=== PATIENT | female | born 1975 | race Caucasian/White ===

== ENCOUNTER 2017-04-30 16:11 | Inpatient (IN) | payer BC, OTHER ==
[~2017-04-30] VITALS: Ht 160 cm; Wt 180.9 kg
--- NOTE | ~2017-04-30 | DS ---
Unit #: [id number] #: [id number] Patient: JOHNATHON CANNON [id number] [address] [place], [place] [address] [id number] MR#: [id number] NAME: JOHNATHON CANNON ROOM: 461 Age: 42 Sex: F Admission Date: 04/30/2017 : 1975 Discharge Date: 05/04/2017 Attending Physician: Emmanuel Arias M.D. Primary Care Physician: No Primary Care Physician DISCHARGE SUMMARY REVISED REPORT HISTORY AND HOSPITAL COURSE Ms. Cannon is a 42-year-old female who is morbidly obese and had several previous intraabdominal operations. She presented with nausea and vomiting and, on CT scan, had an incarcerated incisional ventral hernia with a loop of small bowel. On examination she had erythema and tenderness, and she was taken urgently to the operating room for the incarcerated small bowel. At the time of surgery she was found to have a loop of bowel that was ischemic, but with reduction, the bowel resumed its normal blood flow and resection was not necessary. Other adhesions were taken down, and her abdominal wall was assessed, and there were several other small hernias, and all of the hernias were repaired primarily. She was also noted to have iron deficiency anemia and a urinary tract infection. She had a very unremarkable postoperative course. She regained bowel function by the second postoperative day and was able to be advanced on her diet without difficulty. She ambulated independently. We did have her wear an abdominal binder, but she did not have any difficulty with ambulation. Her wound is healing without complication. I did place a Drew-Malone drain to prevent seroma formation, and the patient will be taught how to use the drain and will go home with that. Today, the nurses have taught her how to use it. We will remove it in the office next week. She is to call and make an appointment. Her serum iron was low, so she will be put on some iron supplementation. She did grow out E-coli in her urine, sensitive to Bactrim, so she will be sent home on Bactrim. The patient has not been diagnosed with sleep apnea, and she did not have any problems postop. Once she is recovered from surgery, we will refer her to a sleep medicine specialist for evaluation. The patient understood these instructions and discharged home in stable condition. Dictated by... Naya Rogers/mario alberto TD: 05/07/2017 07:50 JOB #: [id number] Unit #: [id number] #: [id number] Patient: JOHNATHON CANNON DISCHARGE SUMMARY Page 1 of 1 X Valentin Salomon MD X DISCHARGE SUMMARY
--- NOTE | ~2017-04-30 | CT4 ---
[facility] A Service of [facility] & [facility] RADIOLOGY TEXT RESULTS PATIENT: JOHNATHON MADDEN LOCATION: [facility] 461-01 : [birth year] UNIT #: [id number] AGE: [address]: Emmanuel Arias MD SEX: F ORDER DR: [id number] [facility] [address] [place], [place] [address] [id number] I MR#: [id number] Acc #: [id number] NAME: JOHNATHON MADDEN : 1975 SEX: F STUDY DATE/TIME: 04/30/2017 22:03 UNIT: [facility] ROOM: [facility] STUDY DESCRIPTION: CT Abd and Pelv Wo Cont Attending Physician: Emmanuel Arias M.D. Ordering Physician: Getachew Urias M.D. Primary Care Physician: No Primary Care Physician MEDICAL IMAGING REPORT This report is preliminary unless electronic signature is present EXAM CT abdomen and pelvis without contrast. HISTORY Abdomen pain, nausea and vomiting for 4 days. Hernia reduction in the emergency room today. TECHNIQUE CT abdomen and pelvis was performed without contrast. This CT exam was performed with one or more of the following radiation dose reduction techniques: automatic exposure control, adjustment of mA and/or kV according to patient size, and iterative reconstruction. FINDINGS CT abdomen: There is a small Wagoner hernia in the anterior midline upper abdomen containing the anterior portion of a short segment of mid transverse colon. No associated bowel obstruction. Postop changes of prior gastric stapling. Cholecystectomy. The liver, spleen, kidneys, and adrenal glands are unremarkable. Mild pancreatic parenchymal atrophy. Moderate dilatation of small bowel in the abdomen and pelvis, similar in degree as compared to CT earlier today. There is a moderate-sized umbilical hernia containing loops of small bowel, both decompressed and mildly dilated, measuring approximately 8 x 11 cm x 10 cm in AP, transverse craniocaudal dimensions. The hernia was only partly included on the CT earlier today due to technique. The degree of small bowel dilatation is similar to the prior study. The colon is decompressed. No free fluid. Normal caliber abdominal aorta. CT pelvis: Moderate dilatation of multiple fluid-filled small bowel loops in the pelvis are similar to the prior study. Excreted contrast in the urinary bladder. The uterus and adnexa. [facility] A Service of [facility] RADIOLOGY TEXT RESULTS PATIENT: JOHNATHON MADDEN LOCATION: [facility] 461-01 : [birth year] UNIT #: [id number] AGE: [address]: Emmanuel Arias MD SEX: F ORDER DR: IMPRESSION 1. Persistent umbilical hernia which was only partly included on the CT earlier today. The hernia contains small bowel loops both decompressed and mildly dilated and the hernia measures 8 cm by 11 cm x 10 cm. There is also stable dilatation of small bowel throughout the majority the abdomen and pelvis. Findings are concerning for mechanical small bowel obstruction. The umbilical hernia may be the site of small bowel obstruction, although a definite transition point is not identified within the hernia. Alternatively, there may be a small bowel adhesion, within the abdomen or pelvis but a definite transition point is not identified. 2. Postop changes of gastric stapling. 3. Stable Wagoner hernia incidentally noted in the anterior margin of the mid transverse colon in the midline upper abdomen. 4. No free fluid or loculated fluid. Dictated by... Edgardo Kirby M.D. THIS IS AN ELECTRONICALLY VERIFIED REPORT Edgardo Kirby M.D. at 05/01/2017 2:39 PM AUTUMN/mónica TD: 05/01/2017 11:45 JOB #: [id number] MEDICAL IMAGING REPORT Page 1 of 1 COPY
--- NOTE | ~2017-04-30 | OR ---
Unit #: [id number] #: [id number] Patient: JOHNATHON CANNON [id number] [address] [address] [id number] I MR#: [id number] NAME: JOHNATHON CANNON ROOM: 461 Date of Procedure: 05/01/2017 Admission Date: 04/30/2017 Surgeon: Valentin Salomon M.D. : 1975 Attending Physician: Emmanuel Arias M.D. Primary Care Physician: Primary Care Physician No OPERATIVE REPORT PREOPERATIVE DIAGNOSIS Small-bowel obstruction secondary to incarcerated incisional ventral hernia. POSTOPERATIVE DIAGNOSIS Small-bowel obstruction secondary to incarcerated incisional ventral hernia. PROCEDURES PERFORMED 1. Exploratory laparotomy. 2. Takedown of incisional ventral hernia with lysis of adhesions. 3. Primary repair of incisional ventral hernia. INSPECTOR CIRCUITRY NEGATIVE Crady. ANESTHESIA General endotracheal anesthesia. ESTIMATED BLOOD LOSS 50 mL. INDICATIONS FOR PROCEDURE Ms. Cannon is a morbidly obese 42-year-old female, who has had multiple previous abdominal surgeries. She presented to the emergency room with nausea and vomiting and on CT scan, had a small bowel obstruction secondary to an incarcerated incisional ventral hernia. On examination of the CT, there were several areas of fascial defect, but the central largest defect near the umbilicus had a loop of small bowel that was obviously obstructed. DESCRIPTION OF PROCEDURE The patient was transported from her hospital room to the operating room, and after induction of general endotracheal anesthesia, Norman catheter was placed and she was prepped and draped in usual sterile fashion. A vertical incision made over the palpable mass. I dissected down through the soft tissue and the hernia sac from the surrounding soft tissue. The hernia sac was grasped and elevated between clamps and opened sharply and as we entered the hernia sac, we mobilized, de-torsed, and lysed adhesions to mobilize the small bowel loop that was incarcerated in the hernia sac. Once the small bowel loop was freed up and adhesions were lysed, it was freely mobile and the mild ischemic changes resolved and the Unit #: [id number] #: [id number] Patient: JOHNATHON CANNON bowel had normal blood flow and showed no evidence of ischemia. The bowel was reduced back in the peritoneal cavity. Further adhesions were taken down in the anterior abdominal wall and as we were able to palpate other fascial defects, the fascial opening was opened to include all fascial defects. At the other sites, there was some incarcerated omentum at several the sites, but no other bowel loops. Once the entire anterior abdominal wall was freed up and all fascial defects were identified and included in the opening, a visceral retractor was placed and the fascia was closed with closely placed #1 Vicryl interrupted sutures. Once the fascia was closed, sponge, instrument, and needle counts were correct. I irrigated the soft tissue with saline and Betadine. Through a separate stab incision, a Drew-Malone drain was placed just over the fascia to prevent seroma accumulation. The soft tissue was closed in layers with #1 Vicryl suture and then the skin was reapproximated with sterile skin leon. Dry sterile dressing was placed. During the case, 30 mL of 0.5% Marcaine with epinephrine was infiltrated in the fascia and soft tissue. The patient tolerated the procedure well and she was hemodynamically stable throughout. She was transported to the Recovery in stable condition. She will be readmitted to the hospital postoperatively for postop observation. Dictated by... Naya Rogers/daentte TD: 05/01/2017 11:07 JOB #: [id number] OPERATIVE REPORT Page 1 of 1 X Valentin Salomon MD PROCEDURE OPERATIVE NOTE
--- NOTE | ~2017-04-30 | BMI ---
[facility] Nutrition Therapy DATE: 05/01/17 Patient: JOHNATHON MADDEN Physician: SEBAS Address: [address] Room/Bed: [address] [place] [address], Zip: [place] [address] Admit Date: 04/30/17 Date of : [birth year] Height: 5 3 Weight: 398 180.9 HIGH BMI NOTE: DX: 42 Y.O. FEMALE ADMITTED FOR SBO ANTHROPOMETRICS: 5'3", WT: 395# (180 KG), BMI: 70 DIET: NPO RECOMMENDATIONS: 1. ONCE MEDICALLY FEASIBLE, ADVANCE DIET INDICATED TO HEALTHY HEART + CONSISTENT CARBOHYDRATE DIET + 2000 KCAL RESTRICTION TO PROMOTE GRADUAL WEIGHT LOSS TOWARDS HEALTHY BMI (19.0-25.0) OR +/-10%IBW 2. ADD LOW FIBER TO CURRENT DIET ORDER IF SBO CONFIRMED RD WILL F/U PER PROTOCOL Respectfully, JORGE LUIS JERRY MS, RD, LD Food and Nutritional Services [facility] cc: client file
--- NOTE | ~2017-04-30 | EKG ---
PATIENT: JOHNATHON MADDEN UNIT #: [id number] Ventricular Rate: 76 BPM Atrial Rate: 76 BPM P-R Interval: 142 ms QRS Duration: 80 ms Q-T Interval: 386 ms QTC Calculation(Bezet): 434 ms P Dewar: 21 degrees Calculated R Dewar: 12 degrees Calculated T Dewar: 4 degrees Diagnosis Line: Poor data quality, interpretation may be Diagnosis Line: adversely affected Diagnosis Line: Normal sinus rhythm Diagnosis Line: Normal ECG Diagnosis Line: When compared with ECG of 30-JUL-2016 02:42, Diagnosis Line: No significant change was found Diagnosis Line: Confirmed by MONSE BEDOYA MD ([id number]) on Diagnosis Line: 05/01/2017 2:01:04 PM INTERPRETING MD: ELKE MCDOWELL
--- NOTE | ~2017-04-30 | CT2 ---
[facility] A Service of [facility] & [facility] RADIOLOGY TEXT RESULTS PATIENT: JOHNATHON MADDEN LOCATION: [facility] 461-01 : [birth year] UNIT #: [id number] AGE: [address]: Emmanuel Arias MD SEX: F ORDER DR: [id number] [facility] [address]. [place], [place] [address] [id number] I MR#: [id number] Acc #: [id number] NAME: JOHNATHON MADDEN : 1975 SEX: F STUDY DATE/TIME: 04/30/2017 19:53 UNIT: [facility] ROOM: [facility] STUDY DESCRIPTION: CT Abd and Pelv W Cont Attending Physician: Emmanuel Arias M.D. Ordering Physician: Getachew Urias M.D. Primary Care Physician: No Primary Care Physician MEDICAL IMAGING REPORT This report is preliminary unless electronic signature is present EXAM CT abdomen and pelvis with contrast, 04/30/2017. HISTORY 42-year-old female with abdominal pain and hematemesis for 4 days. COMPARISON None. TECHNIQUE Helical scan performed through the abdomen and pelvis following administration of IV contrast. Coronal and sagittal reformatted images. This CT exam was performed with one or more of the following radiation dose reduction techniques: automatic exposure control, adjustment of mA and/or kV according to patient size, and iterative reconstruction. FINDINGS Examination is slightly limited by patient body habitus. There is partial exclusion of the ventral most portion of the abdominal wall. Visualized lung bases are unremarkable. Postsurgical changes from gastric bypass and cholecystectomy. The liver, spleen, pancreas, both adrenal glands, and both kidneys are within normal limits. Abdominal aorta normal in course and caliber without dissection. There is a moderate ventral abdominal wall hernia containing fat and multiple loops of bowel. There are both collapsed and dilated loops of bowel noted within the ventral abdominal wall hernia and there are multiple dilated fluid-filled loops of bowel noted within the abdomen. Findings most consistent with high-grade small bowel obstruction. No evidence of perforation. No free fluid. The colon is unremarkable. There is a smaller ventral abdominal wall hernia noted slightly more [facility] A Service of [facility] & [facility] RADIOLOGY TEXT RESULTS PATIENT: JOHNATHON MADDEN LOCATION: [facility] 461-01 : [birth year] UNIT #: [id number] AGE: [address]: Emmanuel Arias MD SEX: F ORDER DR: superiorly to the previously described hernia near the umbilicus. This only partially contains a loop of transverse colon. No evidence of obstruction. The urinary bladder, uterus, and adnexa are unremarkable. No free pelvic fluid. No acute bony abnormality. IMPRESSION 1. Moderate ventral abdominal wall hernia near the umbilicus containing fat and both collapse and dilated fluid-filled loops of bowel. There are multiple dilated and fluid-filled loops of bowel noted within the abdomen and findings are most consistent with high-grade small bowel obstruction in or near the ventral abdominal wall hernia. 2. Smaller ventral abdominal wall hernia slightly more cephalad to the previously described partially containing a loop of transverse colon. No evidence of obstruction. 3. Postsurgical changes from gastric bypass and cholecystectomy. Dictated by... Deric French M.D. THIS IS AN ELECTRONICALLY VERIFIED REPORT Deric French M.D. at 05/01/2017 5:11 PM Cesar TD: 05/01/2017 10:44 JOB #: [id number] MEDICAL IMAGING REPORT Page 1 of 1 COPY
[~2017-04-30 16:11] MED LIST: ATENOLOL PO; AUGMENTIN PO; NORCO1 TAB 10/3 PO
[2017-04-30 17:32] LABS: BASOPHIL% 0.2 % (0-2.5); HEMATOCRIT 37.9 % (35.0-45.0); HEMOGLOBIN 11.7 gm/dL (12.0-16.0); LYMPHOCYTE# 1.6 X10e3 (1.0-3.5); LYMPHOCYTE% 8.2 % (17.0-45.0); MEAN CORPUSCULAR HEMOGLOBIN 20.3 PG (28-34); MEAN CORPUSCULAR HGB CONC 30.7 g/dL (30-36); MEAN PLATELET VOLUME 7.8 FL (6.5-11.5); MONOCYTE# 1.4 X10e3 (0-1.0); NEUTROPHIL# 16.8 X10e3 (1.5-7.1); NEUTROPHIL% 84.6 % (40-75); PLATELET COUNT 471 X10e3 (140-420); RED BLOOD COUNT 5.74 X10e (3.90-5.30); RED CELL DISTRIBUTION WIDTH 17.8 % (11.0-15.5); WHITE BLOOD COUNT 19.8 X10e3 (4.0-10.5)
[2017-04-30 17:34] LABS: DIFF IND YES
[2017-04-30 17:42] LABS: INR 1.7
[2017-04-30 17:44] LABS: PROTHROMBIN TIME (PATIENT) 18.7 SECONDS (10.0-11.7)
[2017-04-30 17:47] LABS: PLATELET ESTIMATE INCREASED (NORMAL)
[2017-04-30 17:48] LABS: HYPOCHROMIA MOD; OVALOCYTES PRESENT
[2017-04-30 17:56] LABS: ALBUMIN SERUM 3.9 g/dL (3.5-5.0); BILIRUBIN, DIRECT 0.2 mg/dL (0.0-0.2); BILIRUBIN,INDIRECT 0.3 mg/dL (0.0-0.9); BILIRUBIN,TOTAL 0.5 mg/dL (0.2-2.0); BUN/CREATININE RATIO 17.5; CALCIUM SERUM 8.9 mg/dL (8.4-10.2); CREATININE SERUM 0.8 mg/dL (0.6-1.4); GLOM FILT RATE Estimated 89.7 mL/min (>60); POTASSIUM 3.8 mmol/L (3.5-5.1); PROTEIN TOTAL SERUM 7.8 g/dL (6.0-8.3)
[2017-04-30 18:06] LABS: POC - CKMB 3.6 ng/mL (0.0-7.9); POC - TROPONIN <0.05 ng/mL (<=0.05)
[2017-04-30 19:30] LABS: URINE SOURCE CLEAN CATCH
[2017-04-30 19:35] LABS: URINE APPEARANCE CLOUDY; URINE BLOOD TRACE (NEG); URINE COLOR DK YELLOW; URINE GLUCOSE NEG (NEG); URINE KETONE 1+ (NEG); URINE LEUKOCYTE ESTERASE TRACE (NEG); URINE NITRATE NEG (NEG); URINE PH 5.5 (5-8); URINE PROTEIN 2+ (NEG); URINE SPECIFIC GRAVITY 1.037 (1.003-1.035)
[2017-04-30 19:38] LABS: CULTURE INDICATED? YES; URINE BACTERIA AUWI 2+ (NEGATIVE); URINE SQUAMOUS EPITHELIAL CELL FEW /[HPF]
[2017-05-01 00:46] LABS: BASOPHIL# 0.1 X10e3 (0-0.3); BASOPHIL% 0.5 % (0-2.5); EOSINOPHIL% 0.2 % (0.0-7.0); HEMATOCRIT 35.3 % (35.0-45.0); HEMOGLOBIN 10.9 gm/dL (12.0-16.0); LYMPHOCYTE# 2.5 X10e3 (1.0-3.5); LYMPHOCYTE% 17.2 % (17.0-45.0); MEAN CELL VOLUME 66.5 FL (83-96); MEAN CORPUSCULAR HEMOGLOBIN 20.6 PG (28-34); MEAN CORPUSCULAR HGB CONC 30.9 g/dL (30-36); MEAN PLATELET VOLUME 7.7 FL (6.5-11.5); MONOCYTE# 1.3 X10e3 (0-1.0); MONOCYTE% 8.9 % (3.0-12.0); NEUTROPHIL# 10.9 X10e3 (1.5-7.1); NEUTROPHIL% 73.2 % (40-75); PLATELET COUNT 449 X10e3 (140-420); RED BLOOD COUNT 5.32 X10e (3.90-5.30); RED CELL DISTRIBUTION WIDTH 17.6 % (11.0-15.5); WHITE BLOOD COUNT 14.8 X10e3 (4.0-10.5)
[2017-05-01 00:47] LABS: DIFF IND NO
[2017-05-01 01:07] LABS: BUN/CREATININE RATIO 17.5; CREATININE SERUM 0.8 mg/dL (0.6-1.4); GLOM FILT RATE Estimated 89.7 mL/min (>60); POTASSIUM 3.4 mmol/L (3.5-5.1)
[2017-05-02 03:36] LABS: HEMATOCRIT 34.5 % (35.0-45.0); HEMOGLOBIN 10.5 gm/dL (12.0-16.0); MEAN CELL VOLUME 67.3 FL (83-96); MEAN CORPUSCULAR HEMOGLOBIN 20.5 PG (28-34); MEAN CORPUSCULAR HGB CONC 30.5 g/dL (30-36); MEAN PLATELET VOLUME 7.8 FL (6.5-11.5); RED BLOOD COUNT 5.13 X10e (3.90-5.30); WHITE BLOOD COUNT 14.5 X10e3 (4.0-10.5)
[2017-05-02 03:59] LABS: CALCIUM SERUM 8.3 mg/dL (8.4-10.2); CREATININE SERUM 0.8 mg/dL (0.6-1.4); GLOM FILT RATE Estimated 89.7 mL/min (>60); MAGNESIUM 1.9 mg/dL (1.6-3.0); PHOSPHOROUS 3.1 mg/dL (2.5-4.6); POTASSIUM 3.5 mmol/L (3.5-5.1)
[2017-05-03 04:20] LABS: HEMATOCRIT 32.1 % (35.0-45.0); HEMOGLOBIN 9.9 gm/dL (12.0-16.0); MEAN CELL VOLUME 67.7 FL (83-96); MEAN CORPUSCULAR HEMOGLOBIN 20.9 PG (28-34); MEAN CORPUSCULAR HGB CONC 30.9 g/dL (30-36); MEAN PLATELET VOLUME 8.4 FL (6.5-11.5); RED BLOOD COUNT 4.74 X10e (3.90-5.30); RED CELL DISTRIBUTION WIDTH 18.2 % (11.0-15.5); WHITE BLOOD COUNT 12.7 X10e3 (4.0-10.5)
[2017-05-03 04:46] LABS: BUN/CREATININE RATIO 24.28; CALCIUM SERUM 8.2 mg/dL (8.4-10.2); CREATININE SERUM 0.7 mg/dL (0.6-1.4); GLOM FILT RATE Estimated 105.4 mL/min (>60); POTASSIUM 4.3 mmol/L (3.5-5.1)
[2017-05-03 04:48] LABS: FOLATE (FOLIC ACID) 9.6 ng/mL (>5.8)
[2017-05-04 04:40] LABS: HEMATOCRIT 31.8 % (35.0-45.0); HEMOGLOBIN 9.7 gm/dL (12.0-16.0); MEAN CELL VOLUME 68.7 FL (83-96); MEAN CORPUSCULAR HEMOGLOBIN 20.9 PG (28-34); MEAN CORPUSCULAR HGB CONC 30.4 g/dL (30-36); RED BLOOD COUNT 4.63 X10e (3.90-5.30); RED CELL DISTRIBUTION WIDTH 18.1 % (11.0-15.5)
[2017-05-04] MEDS ORDERED: LORTAB 7.5-3251 EACH PO (12:06)
[2017-05-04] MEDS ORDERED: BACTRIM DS TAB1 EACH PO (12:07)
[2017-05-04] MEDS ORDERED: FERROUS SULFAT325 MG PO (12:12)
[2017-05-09 00:45] LABS: RBC FOLATE 438 ng/mL (>280)
== END 2017-05-04 14:30 | disposition home or self-care (01) | DRG 354 ==
LOC: CED 16:11 → C4C 23:08 → CEDOF 23:08 → C4C 23:22 → CED 23:22 → CEDOF 23:22 → C4C 05-01 01:30
PROVIDERS: Emergency Medicine; Specialist
PROC: 0WQF0ZZ Repair Abdominal Wall, Open Approach (ICD-10-PCS; principal; 2017-05-01 08:30)
DX: K43.0 Incisional hernia with obstruction, without gangrene (principal); N39.0 Urinary tract infection, site not specified; E66.01 Morbid (severe) obesity due to excess calories; I10 Essential (primary) hypertension; D53.9 Nutritional anemia, unspecified; Z86.711 Personal history of pulmonary embolism
CPT/HCPCS: 36415; 74176; 74177; 80048; 80076; 81003; 82150; 82306; 82553; 82607; 82728; 82746; 82747; 83540; 83550; 83605; 83690; 83735; 84100; 84484; 84703; 85025; 85027; 85610; 86850; 86900; 86901; 87086; 87088; 87186; 93005; 94760; 94761; 94762; 96374; 96375; 96376; 97161; 99285; C9113; G8978-GP; G8979-GP; G8980-GP; J0131; J0330; J0360; J1170; J1650; J1885; J1956; J2250; J2270; J2405; J2710; J2765; J3010; Q9967